=== PATIENT | female | born 1980 | race Caucasian/White ===

== ENCOUNTER 2018-04-21 00:58 | Emergency (ER) | payer OTHER ==
[~2018-04-21] VITALS: Ht 170.2 cm; Wt 50.8 kg
--- NOTE | 2018-04-21 02:30 | NUR ---
SEEN AND EXAMINED BY DOCTOR DELFINA ,EXPLAINED AND DISCUSSED ON HOW TO TREAT SKIN RASHES ,SCABIES ,ELIMITE TOPICAL CREAM.
[2018-04-21 02:58] VITALS: BP 123/68
--- NOTE | 2018-04-21 03:00 | NUR ---
Patient discharged to home in stable conditon. Written and verbal after care instructions given. Patient verbalizes understanding of instructions.WENT HOME AMBULATROY WITH SISTER .V/S WNL AND NO RESPIRATORY DISTRESS NOTED .
== END 2018-04-21 03:06 | disposition home or self-care (01) ==
LOC: ER 01:07
DX: B86 Scabies (principal); Z20.89 Contact with and (suspected) exposure to other communicable diseases; Z88.6 Allergy status to analgesic agent
CPT/HCPCS: 99282; A4663

== ENCOUNTER 2018-04-22 23:02 | Emergency (ER) | payer OTHER ==
[~2018-04-22] VITALS: Ht 170.2 cm; Wt 50.8 kg
--- NOTE | 2018-04-22 23:48 | NUR ---
:MAGDALENA AT BEDSIDE ,EVALUATE AND EXAMINED PATIENT .
[2018-04-22] MEDS ORDERED: SULFAMETH/TRIMETH 800/160 MG TABLET ONE (23:58)
[2018-04-23] MEDS ORDERED: SULFAMETH/TRIMETH 800/160 MG TABLET PO ONE
--- NOTE | 2018-04-23 00:50 | NUR ---
Patient discharged to home in stable conditon. Written and verbal after care instructions given. Patient verbalizes understanding of instructions.NO RESPIRATORY DISTRISS NOTED .V/S WNL.AMBULATORY WENT HOME WITH SISTER .NO BELONGINGS.
[2018-04-23 00:54] VITALS: BP 112/60
== END 2018-04-23 00:10 | disposition home or self-care (01) ==
LOC: ER 23:04
DX: R21 Rash and other nonspecific skin eruption (principal); Z88.6 Allergy status to analgesic agent
CPT/HCPCS: A4663